=== PATIENT | female | born 1995 | race Two or more races ===

== ENCOUNTER 2024-03-19 16:17 | Emergency (ER) | payer OTHER ==
[~2024-03-19] VITALS: Ht 170.2 cm; Wt 66.2 kg
[2024-03-19] MEDS ORDERED: PRED50TA PO (18:48)
[2024-03-19] MEDS ORDERED: predniSONE 20 MG TABLET ONE (18:50)
[2024-03-19] MEDS: predniSONE 50 MG TABLET PO ONE (18:51)
[2024-03-19 18:58] VITALS: BP 126/73; TEMP 98; O2SAT 100
== END 2024-03-19 18:59 | disposition home or self-care (01) ==
LOC: ER 16:32
DX: K90.41 Non-celiac gluten sensitivity (principal); J45.909 Unspecified asthma, uncomplicated
CPT/HCPCS: 99283; J7512